=== PATIENT | male | born 1995 | race African-American/Black ===

== ENCOUNTER 2019-11-25 13:55 | Emergency (ER) | payer MEDICAID, SELFPAY ==
[~2019-11-25] VITALS: Ht 175.3 cm; Wt 63.8 kg
[2019-11-25 13:56] VITALS: BP 138/82
[2019-11-25] MEDS ORDERED: metroNIDAZOLE (FLAGYL) 500MG TABLET PO ONE (14:15)
== END 2019-11-25 14:28 | disposition home or self-care (01) ==
LOC: M ED 13:55
DX: Z20.2 Contact with and (suspected) exposure to infections with a predominantly sexual mode of transmission (principal); F17.200 Nicotine dependence, unspecified, uncomplicated